=== PATIENT | male | born 1995 | race Two or more races ===

== ENCOUNTER 2019-10-24 06:00 | Day surgery (SDC) | payer OTHER ==
[~2019-10-24] VITALS: Ht 175.3 cm; Wt 127.0 kg
[2019-10-25] MEDS ORDERED: PERCOCET 5-3251 EACH PO (09:34)
== END 2019-10-25 08:00 | disposition home or self-care (01) ==
LOC: CIR.AMB 06:00 → EDSTATUS 10:45 → SURG 10:45 → SURH 14:32 → O/R 14:32 → CIR.AMB 10-25 08:00 → SURH 10-25 12:42
DX: C18.1 Malignant neoplasm of appendix (principal)

== ENCOUNTER 2020-11-04 07:38 | Day surgery (SDC) | payer OTHER ==
[~2020-11-04 07:38] MED LIST: PERCOCET 5-3251 EACH PO
== END 2020-11-04 13:00 | disposition home or self-care (01) ==
LOC: AMB-ENDOS 07:38
PROVIDERS: ATTEND Surgery
DX: K63.5 Polyp of colon (principal); Z20.822 Contact with and (suspected) exposure to COVID-19